=== PATIENT | male | born 1960 | race Caucasian/White ===

== ENCOUNTER 2017-04-30 12:09 | Inpatient (IN) ==
[2017-04-30] MEDS ORDERED: cefTRIAXone 1,000 MG in SODIUM CHLORIDE 0.9% 100 ML IV STA (14:30)
[2017-04-30] MEDS ORDERED: ONDANSETRON 4 MG/2 ML VIAL IV STA (14:30)
[2017-04-30] MEDS ORDERED: methylPREDNISolone SOD SUC 125 MG/2 ML VIAL IV STA (14:30)
[2017-04-30] MEDS ORDERED: MORPHINE 2 MG/1 ML SYRINGE IV STA (14:30)
[2017-04-30] MEDS ORDERED: FUROSEMIDE 100 MG/10 ML VIAL IV STA (14:30)
[2017-04-30] MEDS ORDERED: ALBUTEROL 2.5 MG/3 ML NEB RESP TX SCH (14:30)
[2017-04-30] MEDS ORDERED: ONDANSETRON 4 MG/2 ML VIAL ONE (15:00)
[2017-04-30] MEDS ORDERED: MORPHINE 10 MG/1 ML VIAL ONE (15:00)
[2017-04-30] MEDS ORDERED: cefTRIAXone 1,000 MG VIAL ONE (15:00)
[2017-04-30] MEDS ORDERED: FUROSEMIDE 20 MG/2 ML VIAL ONE (15:01)
[2017-04-30] MEDS ORDERED: methylPREDNISolone SOD SUC 125 MG/2 ML VIAL ONE (15:01)
[2017-04-30 15:07] LABS: Basophils # 0.1 10*3/uL (0.0-0.2); Basophils % 0.9 % (0.0-0.8); Eosinophils # 0.9 10*3/uL (0.0-0.87); Eosinophils % 12.8 % (0.00-10.9); Hematocrit 34.1 VOL% (42.0-52.0); Hemoglobin 11.2 GM/DL (14.0-18.0); Immature Granulocytes % 0.3 %; Immature Granulocytes Absolute 0.02 #; Lymphocytes % 14.6 % (21.2-54.2); Mean Corpuscular HGB Conc 32.8 GM/DL (32-36); Mean Corpuscular Hemoglobin 32 PG (27-34); Mean Corpuscular Volume 97.4 FL (87-102); Mean Platelet Volume 10.8 FL (9.6-12.0); Monocytes # 0.6 10*3/uL (0.11-0.8); Monocytes % 8.4 % (1.7-12.7); Neutrophils # 4.2 10*3/uL (1.4-7.4); Platelet Count 280 T/CUMM (130-400); Red Cell Distribution Width 12.6 % (9.3-17.3); White Blood Count 6.6 T/CUMM (4-12)
[2017-04-30 15:12] LABS: INR 0.9; PT Patient Result 9.9 SECS
[2017-04-30 15:23] LABS: Alanine Aminotransferase 39 U/L (16-61); Albumin 3.2 G/DL (3.4-5.0); Alkaline Phosphatase 106 U/L (45-117); Aspartate Amino Transferase 17 U/L (0-37); Bilirubin,Total < 0.39 MG/DL (0.2-1.0); Blood Urea Nitrogen 13 MG/DL (7-18); Calcium 8.6 MG/DL (8.5-10.1); Glucose 321 MG/DL (74-106); Magnesium 1.7 MG/DL (1.8-2.4); Osmolality,Calculated 288.5 MOS/KG (273-304); Potassium 4.3 MMOL/L (3.5-5.1); Sodium 139 MMOL/L (136-145); Total Protein 6.6 G/DL (6.4-8.3); Troponin I Only < 0.015 NG/ML (0.00-0.045)
[2017-04-30] MEDS ORDERED: MAGNESIUM SULF RIDER 2 GM in PREMIX 1 EACH IV STA (15:27)
[2017-04-30] MEDS ORDERED: ZALEPLON 5 MG CAPSULE PO PRN (16:18)
[2017-04-30] MEDS ORDERED: ONDANSETRON 4 MG/2 ML VIAL IV PRN (16:18)
[2017-04-30] MEDS ORDERED: ALBUTEROL 2.5 MG/3 ML NEB RESP TX PRN (16:18)
[2017-04-30 16:28] LABS: ABG Base Excess 4.2 MMOL/L (-2.5-2.5); ABG HCO3 28.7 MMOL/L (20-26); ABG Oxygen Saturation 98.7 % (95-100); ABG PCO2 43.1 MM HG (35-48); ABG PH 7.442 (7.35-7.45); ABG TCO2 30.1 MMOL/L (23-27)
[2017-04-30 16:30] LABS: Eosinophils 7 % (0-10); Lymphocytes 11 % (20-55); Platelet Estimate Normal; Segmented Neutrophils 78 % (50-85); Total Cells Counted 100
[2017-04-30] MEDS ORDERED: MAGNESIUM SULF RIDER 50 ML IV ONE (16:32)
[2017-04-30 18:14] LABS: Apearance,Urine CLEAR (Clear); Bilirubin,Urine Negative (Negative); Blood, Urine Negative (Negative); Glucose,Urine (UA) >=500 mg/dL (Negative); Hyaline Casts,Urine 1 /LPF (0-3); Ketones,Urine Negative (Negative); Nitrite,Urine Negative (Negative); Protein,Urine Negative; Urine Color Straw (Yellow); Urine Specific Gravity 1.006 (1.001-1.035); Urine Urobilinogen < 2.0 EU/DL (0.2-1.0); WBC,Urine <1 /HPF (0-6)
[2017-04-30] MEDS ORDERED: AZITHROMYCIN 500 MG VIAL IV ONE (18:17)
[2017-04-30] MEDS ORDERED: ENOXAPARIN 40 MG/0.4 ML SYRINGE ONE (18:19)
[2017-04-30] MEDS: AZITHROMYCIN INJ 500 MG in SODIUM CHLORIDE 0.9% 250 ML IV SCH (18:28)
[2017-04-30] MEDS: ENOXAPARIN 40 MG/0.4 ML SYRINGE SUBCUT SCH (18:28)
[2017-04-30 18:39] LABS: Lactic Acid 3.8 MMOL/L (0.4-2.0)
[2017-04-30] MEDS: SODIUM CHLORIDE 0.9% 1,000 ML IV SCH (18:48)
[2017-04-30] MEDS: ALBUTEROL/IPRATROPIUM 3 ML NEB RESP TX SCH (19:45)
[2017-05-01] MEDS: ALBUTEROL/IPRATROPIUM 3 ML NEB RESP TX SCH ×4 (00:43→19:53)
[2017-05-01] MEDS ORDERED: methylPREDNISolone SOD SUC 125 MG/2 ML VIAL ONE (01:50)
[2017-05-01] MEDS ORDERED: methylPREDNISolone SOD SUC 125 MG/2 ML VIAL IV ONE (02:00)
[2017-05-01 04:54] LABS: Basophils % 0.1 % (0.0-0.8); Eosinophils % 0.1 % (0.00-10.9); Hematocrit 37.1 VOL% (42.0-52.0); Hemoglobin 11.2 GM/DL (14.0-18.0); Immature Granulocytes % 0.8 %; Immature Granulocytes Absolute 0.06 #; Lymphocytes # 0.3 10*3/uL (1.4-4.0); Lymphocytes % 3.7 % (21.2-54.2); Mean Corpuscular HGB Conc 30.2 GM/DL (32-36); Mean Corpuscular Hemoglobin 32 PG (27-34); Mean Corpuscular Volume 104.5 FL (87-102); Mean Platelet Volume 10.5 FL (9.6-12.0); Monocytes # 0.1 10*3/uL (0.11-0.8); Monocytes % 1.7 % (1.7-12.7); Neutrophils # 7.1 10*3/uL (1.4-7.4); Neutrophils % 93.6 % (38.7-73.9); Platelet Count 259 T/CUMM (130-400); Red Blood Count 3.55 MC/CUMM (3.8-5.5); White Blood Count 7.6 T/CUMM (4-12)
[2017-05-01 05:19] LABS: Band Neutrophils 2 % (0-10); Burr Cells Slight; Giant Platelets Few; Hypochromasia 1+; Lymphocytes 2 % (20-55); Ovalocytes Slight; Platelet Estimate Adequate; Segmented Neutrophils 94 % (50-85); Total Cells Counted 100
[2017-05-01] MEDS: SODIUM CHLORIDE 0.9% 1,000 ML IV SCH ×2 (05:23→15:45)
[2017-05-01] MEDS: INSULIN LISPRO 100 UNIT/ML SUBCUT SCH ×6 (08:24→22:04)
[2017-05-01] MEDS ORDERED: INSULIN LISPRO 100 UNIT/ML SUBCUT SCH (08:53)
[2017-05-01] MEDS ORDERED: GLUCAGON 1 MG VIAL IM PRN ×3 (09:02→12:08)
[2017-05-01] MEDS ORDERED: DEXTROSE 50% 25 GM/50 ML VIAL IV PRN ×3 (09:02→12:08)
[2017-05-01 09:48] LABS: Albumin 3.6 G/DL (3.4-5.0); Bilirubin,Total 0.7 MG/DL (0.2-1.0); Potassium 4.7 MMOL/L (3.5-5.1); Total Protein 6.4 G/DL (6.4-8.3)
[2017-05-01 09:54] LABS: Osmolality,Calculated 323.2 MOS/KG (273-304)
[2017-05-01] MEDS: ASPIRIN CHEW 81 MG TABLET PO SCH (10:33)
[2017-05-01] MEDS: PANTOPRAZOLE 40 MG TABLET PO SCH (10:33)
[2017-05-01] MEDS: predniSONE 20 MG TABLET PO SCH (10:33)
[2017-05-01] MEDS: HydrOXYzine PAMOATE 25 MG CAPSULE PO SCH ×3 (10:34→22:04)
[2017-05-01] MEDS: METOPROLOL TARTRATE 25 MG TABLET PO SCH (10:55)
[2017-05-01] MEDS: INSULIN NPH 100 UNIT/ML SUBCUT SCH ×2 (10:55→22:04)
[2017-05-01] MEDS: LISINOPRIL 2.5 MG TABLET PO SCH (10:56)
[2017-05-01] MEDS ORDERED: INSULIN GLARGINE 100 UNIT/ML SUBCUT ONE (12:05)
[2017-05-01] MEDS: cefTRIAXone 1,000 MG in SYRINGE 1 EACH IV SCH (15:43)
[2017-05-01 16:11] LABS: Apearance,Urine CLOUDY (Clear); Bilirubin,Urine Negative (Negative); Blood, Urine Moderate mg/dL (Negative); Glucose,Urine (UA) >=500 mg/dL (Negative); Ketones,Urine Negative (Negative); Mucus,Urine Occasional /LPF (Occasional); Nitrite,Urine Negative (Negative); Protein,Urine Negative; RBC,Urine 21 /HPF (0-4); Urine Color Straw (Yellow); Urine Specific Gravity 1.029 (1.001-1.035); Urine Urobilinogen < 2.0 EU/DL (0.2-1.0); WBC,Urine 53 /HPF (0-6)
[2017-05-01 16:22] LABS: Osmolality,Calculated 320.4 MOS/KG (273-304); Potassium 3.9 MMOL/L (3.5-5.1)
[2017-05-01] MEDS: AZITHROMYCIN INJ 500 MG in SODIUM CHLORIDE 0.9% 250 ML IV SCH (16:36)
[2017-05-01] MEDS: ENOXAPARIN 40 MG/0.4 ML SYRINGE SUBCUT SCH (16:36)
[2017-05-01] MEDS ORDERED: INSULIN GLARGINE 100 UNIT/ML SUBCUT SCH (21:00)
[2017-05-01] MEDS: ATORVASTATIN 80 MG TABLET PO SCH (22:04)
[2017-05-02] MEDS: SODIUM CHLORIDE 0.9% 1,000 ML IV SCH ×2 (01:33→12:20)
[2017-05-02] MEDS: ALBUTEROL/IPRATROPIUM 3 ML NEB RESP TX SCH ×4 (02:15→20:49)
[2017-05-02 04:40] LABS: Basophils % 0.2 % (0.0-0.8); Eosinophils % 0.1 % (0.00-10.9); Hematocrit 30.3 VOL% (42.0-52.0); Hemoglobin 9.7 GM/DL (14.0-18.0); Immature Granulocytes % 0.8 %; Lymphocytes # 0.9 10*3/uL (1.4-4.0); Lymphocytes % 7.3 % (21.2-54.2); Mean Corpuscular Hemoglobin 31 PG (27-34); Mean Corpuscular Volume 97.4 FL (87-102); Mean Platelet Volume 9.8 FL (9.6-12.0); Neutrophils # 10.7 10*3/uL (1.4-7.4); Neutrophils % 83.6 % (38.7-73.9); Platelet Count 267 T/CUMM (130-400); Red Blood Count 3.11 MC/CUMM (3.8-5.5); Red Cell Distribution Width 13.2 % (9.3-17.3); White Blood Count 12.8 T/CUMM (4-12)
[2017-05-02 06:00] LABS: Calcium 8.5 MG/DL (8.5-10.1); Magnesium 2.2 MG/DL (1.8-2.4); Osmolality,Calculated 288.6 MOS/KG (273-304); Potassium 3.5 MMOL/L (3.5-5.1)
[2017-05-02] MEDS: INSULIN LISPRO 100 UNIT/ML SUBCUT SCH ×6 (09:10→21:32)
[2017-05-02] MEDS: INSULIN NPH 100 UNIT/ML SUBCUT SCH ×2 (09:11→10:15)
[2017-05-02] MEDS: LISINOPRIL 2.5 MG TABLET PO SCH (09:12)
[2017-05-02] MEDS: AZITHROMYCIN 250 MG TABLET PO SCH (09:12)
[2017-05-02] MEDS: HydrOXYzine PAMOATE 25 MG CAPSULE PO SCH ×3 (09:12→20:54)
[2017-05-02] MEDS: ASPIRIN CHEW 81 MG TABLET PO SCH (09:12)
[2017-05-02] MEDS: predniSONE 20 MG TABLET PO SCH (09:12)
[2017-05-02] MEDS: METOPROLOL TARTRATE 25 MG TABLET PO SCH (09:12)
[2017-05-02] MEDS: PANTOPRAZOLE 40 MG TABLET PO SCH (09:12)
[2017-05-02] MEDS ORDERED: INSULIN GLARGINE 100 UNIT/ML SUBCUT ONE (12:00)
[2017-05-02] MEDS: cefTRIAXone 1,000 MG in SYRINGE 1 EACH IV SCH (15:59)
[2017-05-02] MEDS: ENOXAPARIN 40 MG/0.4 ML SYRINGE SUBCUT SCH (19:32)
[2017-05-02] MEDS: ATORVASTATIN 80 MG TABLET PO SCH (20:54)
[2017-05-03] MEDS: ALBUTEROL/IPRATROPIUM 3 ML NEB RESP TX SCH ×4 (01:43→21:16)
[2017-05-03] MEDS ORDERED: HALOPERIDOL 5 MG/ML AMP ONE (04:46)
[2017-05-03] MEDS ORDERED: LORazepam 2 MG/1 ML VIAL IM ONE ×2 (04:46→05:00)
[2017-05-03] MEDS: SODIUM CHLORIDE 0.9% 1,000 ML IV SCH ×4 (05:56→18:37)
[2017-05-03 07:10] LABS: Calcium 8.2 MG/DL (8.5-10.1); Magnesium 1.9 MG/DL (1.8-2.4); Osmolality,Calculated 279.1 MOS/KG (273-304)
[2017-05-03 08:04] LABS: Basophils % 0.1 % (0.0-0.8); Eosinophils # 0.1 10*3/uL (0.0-0.87); Eosinophils % 0.8 % (0.00-10.9); Hematocrit 28.4 VOL% (42.0-52.0); Hemoglobin 9.2 GM/DL (14.0-18.0); Immature Granulocytes Absolute 0.12 #; Lymphocytes # 1.5 10*3/uL (1.4-4.0); Lymphocytes % 12.9 % (21.2-54.2); Mean Corpuscular HGB Conc 32.4 GM/DL (32-36); Mean Corpuscular Hemoglobin 32 PG (27-34); Mean Corpuscular Volume 97.3 FL (87-102); Monocytes # 0.7 10*3/uL (0.11-0.8); Monocytes % 6.2 % (1.7-12.7); Platelet Count 213 T/CUMM (130-400); Red Blood Count 2.92 MC/CUMM (3.8-5.5); Red Cell Distribution Width 13.2 % (9.3-17.3); White Blood Count 11.4 T/CUMM (4-12)
[2017-05-03] MEDS: ASPIRIN CHEW 81 MG TABLET PO SCH (09:45)
[2017-05-03] MEDS: METOPROLOL TARTRATE 25 MG TABLET PO SCH (09:45)
[2017-05-03] MEDS: HydrOXYzine PAMOATE 25 MG CAPSULE PO SCH ×3 (09:45→21:04)
[2017-05-03] MEDS: LISINOPRIL 2.5 MG TABLET PO SCH (09:45)
[2017-05-03] MEDS: AZITHROMYCIN 250 MG TABLET PO SCH (09:45)
[2017-05-03] MEDS: PANTOPRAZOLE 40 MG TABLET PO SCH (09:46)
[2017-05-03] MEDS: predniSONE 20 MG TABLET PO SCH (09:46)
[2017-05-03] MEDS: INSULIN LISPRO 100 UNIT/ML SUBCUT SCH ×4 (09:51→21:59)
[2017-05-03] MEDS: LORazepam 2 MG/1 ML VIAL IV PRN (13:46)
[2017-05-03] MEDS ORDERED: HALOPERIDOL 5 MG/ML AMP IV ONE (15:08)
[2017-05-03] MEDS: cefTRIAXone 1,000 MG in SYRINGE 1 EACH IV SCH (15:25)
[2017-05-03] MEDS ORDERED: LIDOCAINE 2%/EPI 20 ML VIAL ONE (17:05)
[2017-05-03] MEDS ORDERED: ALBUTEROL/IPRATROPIUM 3 ML NEB RESP TX ONE (17:07)
[2017-05-03] MEDS ORDERED: LACTATED RINGERS 500 ML IV ONE (17:59)
[2017-05-03] MEDS ORDERED: fentaNYL 100 MCG/2 ML VIAL ONE (18:34)
[2017-05-03] MEDS ORDERED: MIDAZOLAM 10 MG/2 ML VIAL ONE (18:34)
[2017-05-03] MEDS ORDERED: SEVOFLURANE 1 UNIT/15 MINUTE INH ONE (18:34)
[2017-05-03] MEDS ORDERED: KETAMINE 500 MG/10 ML VIAL ONE (18:34)
[2017-05-03] MEDS ORDERED: ROCURONIUM 100 MG/10 ML VIAL IV ONE (18:35)
[2017-05-03] MEDS ORDERED: GLYCOPYRROLATE 0.4 MG/2 ML VIAL ONE (18:35)
[2017-05-03] MEDS ORDERED: LACTATED RINGERS 1,000 ML IV ONE (18:35)
[2017-05-03] MEDS: PROPOFOL 1,000 MG/100 ML BOTTLE IV SCH (18:41)
[2017-05-03] MEDS: ATORVASTATIN 80 MG TABLET PO SCH (21:03)
[2017-05-03] MEDS ORDERED: LIDOCAINE 1%/EPI INJ 20 ML VIAL ONE (22:20)
[2017-05-04] MEDS: ALBUTEROL/IPRATROPIUM 3 ML NEB RESP TX SCH ×4 (00:36→20:19)
[2017-05-04] MEDS: PROPOFOL 1,000 MG/100 ML BOTTLE IV SCH ×3 (01:30→19:34)
[2017-05-04] MEDS: SODIUM CHLORIDE 0.9% 1,000 ML IV SCH ×2 (05:00→13:55)
[2017-05-04] MEDS: INSULIN LISPRO 100 UNIT/ML SUBCUT SCH ×4 (08:10→21:18)
[2017-05-04] MEDS: METOPROLOL TARTRATE 25 MG TABLET PO SCH (09:04)
[2017-05-04] MEDS: predniSONE 20 MG TABLET PO SCH (09:04)
[2017-05-04] MEDS: ASPIRIN CHEW 81 MG TABLET PO SCH (09:04)
[2017-05-04] MEDS: HydrOXYzine PAMOATE 25 MG CAPSULE PO SCH ×3 (09:05→21:18)
[2017-05-04] MEDS: PANTOPRAZOLE 40 MG TABLET PO SCH (09:05)
[2017-05-04] MEDS: LISINOPRIL 2.5 MG TABLET PO SCH (09:05)
[2017-05-04] MEDS: AZITHROMYCIN 250 MG TABLET PO SCH (09:05)
[2017-05-04] MEDS: LORazepam 2 MG/1 ML VIAL IV PRN (13:54)
[2017-05-04] MEDS: cefTRIAXone 1,000 MG in SYRINGE 1 EACH IV SCH (14:47)
[2017-05-04] MEDS: ATORVASTATIN 80 MG TABLET PO SCH (21:18)
[2017-05-04] MEDS ORDERED: KETOROLAC 15 MG/1 ML VIAL IV ONE (22:00)
[2017-05-05] MEDS: SODIUM CHLORIDE 0.9% 1,000 ML IV SCH ×3 (00:17→20:23)
[2017-05-05] MEDS: ALBUTEROL/IPRATROPIUM 3 ML NEB RESP TX SCH ×4 (00:42→20:26)
[2017-05-05 06:43] LABS: Basophils % 0.1 % (0.0-0.8); Eosinophils % 0.3 % (0.00-10.9); Hematocrit 30.9 VOL% (42.0-52.0); Hemoglobin 10.1 GM/DL (14.0-18.0); Immature Granulocytes % 0.3 %; Immature Granulocytes Absolute 0.02 #; Lymphocytes # 0.8 10*3/uL (1.4-4.0); Lymphocytes % 11.4 % (21.2-54.2); Mean Corpuscular HGB Conc 32.7 GM/DL (32-36); Mean Corpuscular Hemoglobin 32 PG (27-34); Mean Corpuscular Volume 96.3 FL (87-102); Monocytes # 0.4 10*3/uL (0.11-0.8); Neutrophils # 5.8 10*3/uL (1.4-7.4); Neutrophils % 81.9 % (38.7-73.9); Platelet Count 209 T/CUMM (130-400); Red Blood Count 3.21 MC/CUMM (3.8-5.5); White Blood Count 7.1 T/CUMM (4-12)
[2017-05-05 07:13] LABS: Calcium 8.4 MG/DL (8.5-10.1); Magnesium 1.9 MG/DL (1.8-2.4); Osmolality,Calculated 288.7 MOS/KG (273-304); Potassium 4.1 MMOL/L (3.5-5.1)
[2017-05-05] MEDS: INSULIN LISPRO 100 UNIT/ML SUBCUT SCH ×4 (07:28→20:20)
[2017-05-05] MEDS: predniSONE 20 MG TABLET PO SCH (10:13)
[2017-05-05] MEDS: METOPROLOL TARTRATE 25 MG TABLET PO SCH ×2 (10:13→19:10)
[2017-05-05] MEDS: ASPIRIN CHEW 81 MG TABLET PO SCH (10:13)
[2017-05-05] MEDS: LISINOPRIL 2.5 MG TABLET PO SCH (10:14)
[2017-05-05] MEDS: PANTOPRAZOLE 40 MG TABLET PO SCH (10:17)
[2017-05-05] MEDS: HydrOXYzine PAMOATE 25 MG CAPSULE PO SCH ×3 (10:17→20:22)
[2017-05-05] MEDS: AZITHROMYCIN 250 MG TABLET PO SCH (10:17)
[2017-05-05] MEDS: hydrALAZINE 20 MG/1 ML VIAL IV PRN (11:49)
[2017-05-05] MEDS ORDERED: PROMETHAZINE 25 MG/1 ML VIAL ONE (13:26)
[2017-05-05] MEDS: PROMETHAZINE INJ 12.5 MG in SODIUM CHLORIDE 0.9% 50 ML IV PRN (13:30)
[2017-05-05] MEDS: cefTRIAXone 1,000 MG in SYRINGE 1 EACH IV SCH (16:29)
[2017-05-05] MEDS: PROPOFOL 1,000 MG/100 ML BOTTLE IV SCH (19:11)
[2017-05-05] MEDS: ATORVASTATIN 80 MG TABLET PO SCH (20:22)
[2017-05-06] MEDS: ALBUTEROL/IPRATROPIUM 3 ML NEB RESP TX SCH ×4 (01:15→20:32)
[2017-05-06] MEDS: SODIUM CHLORIDE 0.9% 1,000 ML IV SCH ×3 (01:15→11:30)
[2017-05-06] MEDS: AZITHROMYCIN 250 MG TABLET PO SCH (08:03)
[2017-05-06] MEDS: INSULIN LISPRO 100 UNIT/ML SUBCUT SCH ×4 (08:03→23:06)
[2017-05-06] MEDS: METOPROLOL TARTRATE 25 MG TABLET PO SCH (08:04)
[2017-05-06] MEDS: LISINOPRIL 2.5 MG TABLET PO SCH (08:04)
[2017-05-06] MEDS: predniSONE 20 MG TABLET PO SCH (08:04)
[2017-05-06] MEDS: PANTOPRAZOLE 40 MG TABLET PO SCH (08:04)
[2017-05-06] MEDS: ASPIRIN CHEW 81 MG TABLET PO SCH (08:04)
[2017-05-06] MEDS: HydrOXYzine PAMOATE 25 MG CAPSULE PO SCH ×3 (08:12→23:06)
[2017-05-06] MEDS: cefTRIAXone 1,000 MG in SYRINGE 1 EACH IV SCH (15:17)
[2017-05-06] MEDS: ACETAMINOPHEN 325 MG TABLET PO PRN (17:56)
[2017-05-06] MEDS: PROPOFOL 1,000 MG/100 ML BOTTLE IV SCH (20:44)
[2017-05-06] MEDS: ATORVASTATIN 80 MG TABLET PO SCH (23:06)
[2017-05-07] MEDS: ALBUTEROL/IPRATROPIUM 3 ML NEB RESP TX SCH ×4 (00:28→20:09)
[2017-05-07] MEDS: SODIUM CHLORIDE 0.9% 1,000 ML IV SCH ×4 (07:00→19:48)
[2017-05-07] MEDS: INSULIN LISPRO 100 UNIT/ML SUBCUT SCH ×4 (08:37→20:08)
[2017-05-07] MEDS: AZITHROMYCIN 250 MG TABLET PO SCH (08:37)
[2017-05-07] MEDS: ASPIRIN CHEW 81 MG TABLET PO SCH (08:37)
[2017-05-07] MEDS: METOPROLOL TARTRATE 25 MG TABLET PO SCH (08:38)
[2017-05-07] MEDS: LISINOPRIL 2.5 MG TABLET PO SCH (08:38)
[2017-05-07] MEDS: predniSONE 20 MG TABLET PO SCH (08:38)
[2017-05-07] MEDS: HydrOXYzine PAMOATE 25 MG CAPSULE PO SCH ×3 (08:38→20:46)
[2017-05-07] MEDS: PANTOPRAZOLE 40 MG TABLET PO SCH (08:40)
[2017-05-07] MEDS ORDERED: INSULIN GLARGINE 100 UNIT/ML SUBCUT SCH (10:53)
[2017-05-07] MEDS: cefTRIAXone 1,000 MG in SYRINGE 1 EACH IV SCH (16:23)
[2017-05-07] MEDS: ATORVASTATIN 80 MG TABLET PO SCH (20:46)
[2017-05-07] MEDS: ACETAMINOPHEN 325 MG TABLET PO PRN (22:29)
[2017-05-08] MEDS: ALBUTEROL/IPRATROPIUM 3 ML NEB RESP TX SCH ×4 (00:31→20:45)
[2017-05-08] MEDS: SODIUM CHLORIDE 0.9% 1,000 ML IV SCH ×2 (04:22→15:00)
[2017-05-08] MEDS: INSULIN LISPRO 100 UNIT/ML SUBCUT SCH ×4 (08:59→22:54)
[2017-05-08] MEDS: HydrOXYzine PAMOATE 25 MG CAPSULE PO SCH ×3 (08:59→22:09)
[2017-05-08] MEDS: LISINOPRIL 2.5 MG TABLET PO SCH (08:59)
[2017-05-08] MEDS: METOPROLOL TARTRATE 25 MG TABLET PO SCH (08:59)
[2017-05-08] MEDS: predniSONE 20 MG TABLET PO SCH (08:59)
[2017-05-08] MEDS: AZITHROMYCIN 250 MG TABLET PO SCH (08:59)
[2017-05-08] MEDS: ASPIRIN CHEW 81 MG TABLET PO SCH (09:00)
[2017-05-08] MEDS: PANTOPRAZOLE 40 MG TABLET PO SCH (09:00)
[2017-05-08] MEDS: cefTRIAXone 1,000 MG in SYRINGE 1 EACH IV SCH (15:23)
[2017-05-08] MEDS: LORazepam 2 MG/1 ML VIAL IV PRN (20:15)
[2017-05-08] MEDS ORDERED: ZIPRASIDONE 20 MG/1 ML VIAL IM ONE (21:42)
[2017-05-08] MEDS: ATORVASTATIN 80 MG TABLET PO SCH (22:08)
[2017-05-08] MEDS: DOCUSATE SODIUM 100 MG/10 ML UDCUP PO SCH (22:08)
[2017-05-09] MEDS: ALBUTEROL/IPRATROPIUM 3 ML NEB RESP TX SCH ×4 (00:56→19:58)
[2017-05-09] MEDS: SODIUM CHLORIDE 0.9% 1,000 ML IV SCH ×2 (01:26→21:38)
[2017-05-09] MEDS: INSULIN LISPRO 100 UNIT/ML SUBCUT SCH ×4 (08:05→21:37)
[2017-05-09] MEDS: METOPROLOL TARTRATE 25 MG TABLET PO SCH (08:06)
[2017-05-09] MEDS: AZITHROMYCIN 250 MG TABLET PO SCH (08:06)
[2017-05-09] MEDS: DOCUSATE SODIUM 100 MG/10 ML UDCUP PO SCH ×2 (08:06→21:38)
[2017-05-09] MEDS: predniSONE 20 MG TABLET PO SCH (08:07)
[2017-05-09] MEDS: LISINOPRIL 2.5 MG TABLET PO SCH (08:07)
[2017-05-09] MEDS: HydrOXYzine PAMOATE 25 MG CAPSULE PO SCH ×3 (08:07→21:37)
[2017-05-09] MEDS: PANTOPRAZOLE 40 MG TABLET PO SCH (08:07)
[2017-05-09] MEDS: ASPIRIN CHEW 81 MG TABLET PO SCH (08:07)
[2017-05-09] MEDS ORDERED: SIMETHICONE CHEW 80 MG TABLET PO PRN (10:35)
[2017-05-09] MEDS: cefTRIAXone 1,000 MG in SYRINGE 1 EACH IV SCH (16:30)
[2017-05-09] MEDS: SIMETHICONE CHEW 80 MG TABLET PO SCH ×2 (16:30→21:37)
[2017-05-09] MEDS: ATORVASTATIN 80 MG TABLET PO SCH (21:37)
[2017-05-10] MEDS: ALBUTEROL/IPRATROPIUM 3 ML NEB RESP TX SCH ×4 (00:16→20:11)
[2017-05-10] MEDS: SODIUM CHLORIDE 0.9% 1,000 ML IV SCH ×2 (00:57→10:57)
[2017-05-10 07:22] LABS: Basophils % 0.1 % (0.0-0.8); Eosinophils % 0.5 % (0.00-10.9); Hematocrit 25.2 VOL% (42.0-52.0); Immature Granulocytes % 0.5 %; Immature Granulocytes Absolute 0.04 #; Lymphocytes % 12.6 % (21.2-54.2); Mean Corpuscular HGB Conc 31.7 GM/DL (32-36); Mean Corpuscular Hemoglobin 30 PG (27-34); Mean Corpuscular Volume 95.8 FL (87-102); Monocytes # 0.7 10*3/uL (0.11-0.8); Monocytes % 9.8 % (1.7-12.7); Neutrophils # 5.7 10*3/uL (1.4-7.4); Neutrophils % 76.5 % (38.7-73.9); Platelet Count 293 T/CUMM (130-400); Red Blood Count 2.63 MC/CUMM (3.8-5.5); Red Cell Distribution Width 12.6 % (9.3-17.3); White Blood Count 7.5 T/CUMM (4-12)
[2017-05-10 07:56] LABS: Calcium 7.2 MG/DL (8.5-10.1); Osmolality,Calculated 279.4 MOS/KG (273-304); Potassium 2.9 MMOL/L (3.5-5.1)
[2017-05-10] MEDS: INSULIN LISPRO 100 UNIT/ML SUBCUT SCH ×4 (08:24→22:57)
[2017-05-10] MEDS: AZITHROMYCIN 250 MG TABLET PO SCH (08:25)
[2017-05-10] MEDS: METOPROLOL TARTRATE 25 MG TABLET PO SCH (08:25)
[2017-05-10] MEDS: LISINOPRIL 2.5 MG TABLET PO SCH (08:25)
[2017-05-10] MEDS: SIMETHICONE CHEW 80 MG TABLET PO SCH ×3 (08:25→20:35)
[2017-05-10] MEDS: predniSONE 20 MG TABLET PO SCH (08:25)
[2017-05-10] MEDS: HydrOXYzine PAMOATE 25 MG CAPSULE PO SCH ×3 (08:25→20:35)
[2017-05-10] MEDS: ASPIRIN CHEW 81 MG TABLET PO SCH (08:25)
[2017-05-10] MEDS: PANTOPRAZOLE 40 MG TABLET PO SCH (08:25)
[2017-05-10] MEDS: DOCUSATE SODIUM 100 MG/10 ML UDCUP PO SCH ×2 (08:26→20:35)
[2017-05-10] MEDS ORDERED: SODIUM CHLORIDE 0.9% 1,000 ML IV PRN ×3 (09:52→18:00)
[2017-05-10] MEDS ORDERED: POTASSIUM CHLORIDE 20 MEQ TABLET PO SCH (10:00)
[2017-05-10] MEDS: POTASSIUM CHLORIDE 20 MEQ/15 ML UDCUP PO SCH (12:18)
[2017-05-10] MEDS: cefTRIAXone 1,000 MG in SYRINGE 1 EACH IV SCH (15:14)
[2017-05-10] MEDS: ATORVASTATIN 80 MG TABLET PO SCH (20:35)
[2017-05-11] MEDS: PROMETHAZINE INJ 12.5 MG in SODIUM CHLORIDE 0.9% 50 ML IV PRN (01:22)
[2017-05-11] MEDS: ALBUTEROL/IPRATROPIUM 3 ML NEB RESP TX SCH ×3 (01:58→14:19)
[2017-05-11] MEDS: hydrALAZINE 20 MG/1 ML VIAL IV PRN (07:32)
[2017-05-11 08:07] LABS: Hematocrit 33.4 VOL% (42.0-52.0); Hemoglobin 11.7 GM/DL (14.0-18.0)
[2017-05-11] MEDS: predniSONE 20 MG TABLET PO SCH (08:44)
[2017-05-11] MEDS: INSULIN LISPRO 100 UNIT/ML SUBCUT SCH ×2 (08:44→12:52)
[2017-05-11] MEDS: ASPIRIN CHEW 81 MG TABLET PO SCH (08:45)
[2017-05-11] MEDS: POTASSIUM CHLORIDE 20 MEQ/15 ML UDCUP PO SCH (08:45)
[2017-05-11] MEDS: AZITHROMYCIN 250 MG TABLET PO SCH (08:45)
[2017-05-11] MEDS: METOPROLOL TARTRATE 25 MG TABLET PO SCH (08:45)
[2017-05-11] MEDS: LISINOPRIL 2.5 MG TABLET PO SCH (08:45)
[2017-05-11] MEDS: HydrOXYzine PAMOATE 25 MG CAPSULE PO SCH (08:45)
[2017-05-11] MEDS: DOCUSATE SODIUM 100 MG/10 ML UDCUP PO SCH (08:45)
[2017-05-11] MEDS: PANTOPRAZOLE 40 MG TABLET PO SCH (08:45)
[2017-05-11] MEDS: SIMETHICONE CHEW 80 MG TABLET PO SCH (08:47)
[2017-05-11] MEDS ORDERED: POTASSIUM CHLORIDE 20 MEQ TABLET PO ONE (10:00)
[2017-05-11 14:02] VITALS: BP 137/75
== END 2017-05-11 15:05 | DRG 11 ==
LOC: EDUNIT# → EDBD → N.ED 12:09 → SUATTDRO 15:43 → N.EDINP 15:43 → N.5E 18:56 → N.CC 05-01 02:07
PROVIDERS: ADMIT Internal Medicine; ATTEND Internal Medicine